=== PATIENT | female | born 1995 ===

== ENCOUNTER 2018-10-09 20:40 | Emergency (ER) | payer SELFPAY ==
--- NOTE | 2018-10-09 21:11 | UC ---
Skin Complaint HPI - HPI Summary HPI Summary: 23 yo female presents with nose ring stuck in her left nare. She tells me that earlier tonight she laid down and felt her nose ring dislodge from her nose. She looked in the mirror and saw it deep inside her nose and couldn't remove it. No pain and is breathing easily. - History of Current Complaint Time Seen by Provider: 10/09/18 21:10 Stated Complaint: NOSE COMPLAINT Hx Obtained From: Patient Current Severity: None - Allergy/Home Medications Allergies/Adverse Reactions: Allergies Allergy/AdvReac Type Severity Reaction Status Date / Time No Known Allergies Allergy Verified 10/09/18 21:18 Home Medications: Home Medications NK [No Home Medications Reported] 10/09/18 [History Confirmed 10/09/18] PMH/Surg Hx/FS Hx/Imm Hx - Additional Past Medical History Additional PMH: None - Surgical History Surgical History: None - Family History Known Family History: Positive: None - Social History Occupation: Employed Full-time Lives: With Family Alcohol Use: Occasionally Substance Use Type: None Smoking Status (MU): Never Smoked Tobacco Review of Systems All Other Systems Reviewed And Are Negative: Yes Constitutional: Positive: Negative Skin: Positive: Other - nose ring stuck in left nare Respiratory: Positive: Negative Cardiovascular: Positive: Negative Neurovascular: Positive: Negative Neurological: Positive: Negative Psychological: Positive: Negative Physical Exam - Summary Physical Exam Summary: GENERAL: NAD. WDWN. No pain distress. HEENT: Head: AT/NC Nose: Nasal mucosa pink and moist. NTTP maxillary and frontal sinus. LEFT NARE: Gold nose ring visible in inferior turbinate NECK: Supple. Nontender. No lymphadenopathy. CHEST: No accessory muscle use. Breathing comfortably and in no distress. CV: Pulses intact. Cap refill <2seconds NEURO: Alert. PSYCH: Age appropriate behavior. Triage Information Reviewed: Yes Vital Signs: Vital Signs: Temp Pulse Resp BP Pulse Ox 98.6 F 93 16 116/76 100 10/09/18 21:18 10/09/18 21:18 10/09/18 21:18 10/09/18 21:18 10/09/18 21:18 Vital Signs Reviewed: Yes Course/Dx - Course Course Of Treatment: In the process of attempting to remove the nose ring with alligator forceps - pt inhaled and cough and the nose ring came out of her mouth. No pain or distress. Symptoms resolved. - Diagnoses Provider Diagnosis: Foreign body in nose Discharge - Sign-Out/Discharge Documenting (check all that apply): Patient Departure All imaging exams completed and their final reports reviewed: No Studies - Discharge Plan Condition: Stable Disposition: HOME Referrals: No Primary Care Phys,NOPCP [Primary Care Provider] - - Billing Disposition and Condition Condition: STABLE Disposition: Home
== END 2018-10-09 21:45 | disposition home or self-care (01) ==
LOC: UCEAST 20:40
DX: T17.1XXA Foreign body in nostril, initial encounter (principal); X58.XXXA Exposure to other specified factors, initial encounter; Y92.9 Unspecified place or not applicable
CPT/HCPCS: 30300; 99201; G0463